=== PATIENT | male | born 1955 | race Caucasian/White ===

== ENCOUNTER 2018-05-03 08:15 | Day surgery (SDC) | payer MEDICARE ==
[2018-04-29 10:28] VITALS: BMI 29.5
[~2018-05-03 08:15] MED LIST: LACTATED RINGERS 1,000 ML IV SCH
[2018-05-03] MEDS ORDERED: LIDOCAINE 1% 20 ML VIAL (10MG/ML) FOR IV START INTRADERMA ONE (08:45)
[2018-05-03 08:57] VITALS: RESP 18; TEMP 98.3
[2018-05-03] MEDS ORDERED: LIDOCAINE 1% INJ 10MG/ML (20 ML MDV) ONE (09:14)
[2018-05-03] MEDS ORDERED: PROPOFOL 10 MG/ML 20 ML VIAL IV ONE (09:14)
--- NOTE | 2018-05-03 09:20 | P.GSHP ---
History of Present Illness H&P Date: 05/03/18 Chief Complaint: GERD, dyspepsia This is a 62-year-old male with history of GERD and indigestion. Patient's today for EGD. Past Medical History Past Medical History: Chest Pain / Angina, GERD/Reflux, Hyperlipidemia, Hypertension, Myocardial Infarction (MA) Last Myocardial Infarction Date:: 07/2014 History of Any Multi-Drug Resistant Organisms: None Reported Past Surgical History: Hernia Repair, Orthopedic Surgery Additional Past Surgical History / Comment(s): BONE GRAFT, FROM RT HIP TO RIGHT WRIST. COLONOSCOPY Past Anesthesia/Blood Transfusion Reactions: No Reported Reaction Smoking Status: Former smoker - Past Family History Mother Family Medical History: No Reported History Medications and Allergies Home Medications Medication Instructions Recorded Confirmed Type Aspirin 81 mg PO DAILY 09/08/14 04/29/18 History Losartan-Hctz 50-12.5 mg [Hyzaar 1 tab PO DAILY 09/08/14 04/29/18 History 50-12.5] Atorvastatin [Lipitor] 20 mg PO HS 04/29/18 04/29/18 History Clopidogrel [Plavix] 75 mg PO DAILY 04/29/18 05/03/18 History Glucosamine Sulfate 1,500 mg PO DAILY 04/29/18 04/29/18 History Metoprolol Tartrate 25 mg PO DAILY 04/29/18 04/29/18 History Pantoprazole Sodium 40 mg PO DAILY 04/29/18 05/03/18 History Allergies Allergy/AdvReac Type Severity Reaction Status Date / Time No Known Allergies Allergy Verified 05/03/18 08:35 Surgical - Exam Vital Signs Temp Pulse Resp BP Pulse Ox 98.3 F 63 18 151/86 97 05/03/18 08:51 05/03/18 08:51 05/03/18 08:51 05/03/18 08:51 05/03/18 08:51 - General well developed, well nourished, no distress - Eyes PERRL - ENT normal pinna - Neck no masses - Respiratory normal expansion - Cardiovascular Rhythm: regular - Abdomen Abdomen: soft, non tender Assessment and Plan Assessment: GERD, indigestion. We'll perform EGD
--- NOTE | 2018-05-03 09:30 | P.OP ---
Date of Procedure: 05/03/18 Preoperative Diagnosis: GERD Indigestion Postoperative Diagnosis: Antral gastritis Moderate size sliding hiatal hernia Esophagitis Procedure(s) Performed: EGD Anesthesia: MAC Surgeon: Caden Myers Pathology: other (Esophagus, antrum) Description of Procedure: The patient's placed on the endoscopy table in the lateral position. He received IV sedation. The gastroscope was placed oropharynx passed in the esophagus into the stomach. Scope was then placed through the pylorus. First and second portion of the duodenum appeared normal. The scope was then brought back the antrum and this appeared mildly inflamed. A biopsies was performed. The scope was then retroflexed and the remainder of the stomach appeared normal. There was a moderate sized sliding hiatal hernia. The GE junction was at 38 cm.. The distal esophagus inflamed. There is evidence of moderate esophagitis. Several biopsies were performed. The proximal esophagus appeared normal. Scope was withdrawn for patient.
[2018-05-03 09:46] VITALS: BP 149/84; PULSE 65
== END 2018-05-03 10:04 | disposition home or self-care (01) ==
LOC: ORWHC2ENDO 08:15
PROVIDERS: ATTEND Surgery
DX: K21.0 Gastro-esophageal reflux disease with esophagitis (principal); K29.50 Unspecified chronic gastritis without bleeding; K22.10 Ulcer of esophagus without bleeding; K44.9 Diaphragmatic hernia without obstruction or gangrene; E78.5 Hyperlipidemia, unspecified; I10 Essential (primary) hypertension; I25.2 Old myocardial infarction; I25.10 Atherosclerotic heart disease of native coronary artery without angina pectoris; M19.90 Unspecified osteoarthritis, unspecified site; Z87.891 Personal history of nicotine dependence; Z79.82 Long term (current) use of aspirin; Z79.02 Long term (current) use of antithrombotics/antiplatelets; Z79.899 Other long term (current) drug therapy
CPT/HCPCS: 88305; 88342; 88341; 43239; J2001; J2704